=== PATIENT | female | born 1975 | race African-American/Black ===

== ENCOUNTER 2022-09-25 21:36 | Emergency (ER) | payer SELFPAY ==
[2022-09-26 00:15] LABS: SARS-CoV-2 NAA Rapid Test Not Detected (NotDetected)
== END 2022-09-26 01:11 | disposition home or self-care (01) ==
LOC: ERS 21:36
DX: J22 Unspecified acute lower respiratory infection (principal); Z20.822 Contact with and (suspected) exposure to COVID-19; F17.210 Nicotine dependence, cigarettes, uncomplicated
CPT/HCPCS: 99283